=== PATIENT | female | born 1985 | race Caucasian/White ===

== ENCOUNTER 2016-08-28 17:49 | Emergency (ER) | payer SELFPAY ==
[2016-08-28 17:54] VITALS: TEMP 98.2; O2SAT 99
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
[2016-08-28] MEDS ORDERED: LORazepam 1 MG TAB ONE (18:41)
[2016-08-28] MEDS ORDERED: LORazepam 1 MG TAB PO ONE (18:42)
[2016-08-28 19:10] VITALS: BP 120/78; PULSE 86; RESP 18
== END 2016-08-28 19:10 | disposition home or self-care (01) ==
DX: F43.0 Acute stress reaction (principal)

== ENCOUNTER → 2018-03-16 | Outpatient (CLI) | payer MEDICAID | LOC: FIMAGING 07:23 | PROVIDERS: ATTEND Family Medicine | DX: K76.9 Liver disease, unspecified (principal) ==

== ENCOUNTER → 2018-06-14 | Outpatient (CLI) | payer MEDICAID ==
[~2018-06-14] MED LIST: SINCALIDE 5 MCG VIAL IV ONE
== END ==
LOC: FIMAGING 08:21
PROVIDERS: ATTEND Nurse Practitioner Family
DX: R10.11 Right upper quadrant pain (principal)
CPT/HCPCS: 78227; A9537; J2805